=== PATIENT | female | born 2000 | race Caucasian/White ===

== ENCOUNTER 2021-12-06 13:30 | Emergency (ER) | payer BC, SELFPAY ==
[2021-12-06 13:37] VITALS: BP 132/75; PULSE 101; RESP 16; TEMP 36.2; O2SAT 98; BMI 25.6
--- NOTE | 2021-12-06 14:42 | ED.GENADULT ---
HPI - General Adult General Date Seen: 12/06/21 Chief complaint: Animal Bite Stated complaint: Possible Bat Bite Time Seen by Provider: 12/06/21 13:40 Source: patient History of Present Illness HPI narrative: Patient is a 21-year-old who comes in after concerns about a possible exposure to a bat. She says 2 nights ago she had gone out to get her cat who was outside. She says that she went just past the threshold of her door. She noted that there were some bat flying around up near a light high up in the air. She picked up her cat and went inside. She was not aware of any bat coming down lower near her. She did not feel any kind of bite or sting. She went inside and sat down, at which time she noted some blood on her right great toe. When she wiped it away, there was a small abrasion there. She is aware of having stubbed her foot at some point during the evening, though she does not remember if it was her right or left. In talking with her mom, she became concerned that this might be a possible bite from a bat. However, she is very sure that she did not feel anything near her foot, and did not see anything fly near her. It was not dark, she sure that there was enough light that she would have seen something, and she was just barely outside the door. She has not had any difficulty with the wound since then, it is healing and is almost gone. Tetanus is up-to-date. Related Data Home Medications Medication Instructions Recorded Confirmed No Known Home Medications 12/06/21 12/06/21 Allergies Allergy/AdvReac Type Severity Reaction Status Date / Time No Known Drug Allergies Allergy Verified 12/06/21 13:36 [facility] Social History Smoking Status: Never smoker Do you use any of these nicotine containing products: None Second hand tobacco smoke exposure: No How often do you have a drink containing alcohol: 2-4 times a month How many standard drinks containing alcohol do you have on a typical day: 1 or 2 How often do you have six or more drinks on one occasion: Less than monthly AUDIT-C Alcohol total score: 3 Non-prescribed substance use: denies use Exam Narrative: Exam Narrative: Vital signs reviewed. In general, an alert, well-appearing young woman. Extremities: Examination of the right great toe shows a tiny abrasion, no evidence of infection. Skin: Warm dry well perfused. Const: Vital Signs, click to edit/add: Vital Signs - 24 hr 12/06/21 13:37 Temperature 97.1 F L Pulse Rate [Pulse Oximeter] 101 H Respiratory Rate 16 Blood Pressure [Ri ght Upper Arm] 132/75 Pulse Oximetry 98 Course Course Hospital Course: I elected to talk with [facility] about her care, as I suspected that she could not really have been bitten by a bat without being aware of either the bite or a bat flying down by her foot. [facility] agreed that given that bat bites are a) typically painful, B) typically too small to see and typically do not bleed, and C) that bats are clumsy, and that it would be virtually impossible to have a bat come down by your foot and by you without being aware of the animal being near you, that she did not need shots for rabies. I discussed all this with her. She is comfortable with that decision. Routine wound care. Return for signs of infection. Vital Signs Vital signs: Initial Vital Signs Temperature 97.1 F L 12/06/21 13:37 Temperature Source Temporal Artery Scan 12/06/21 13:37 Pulse Rate 101 H 12/06/21 13:37 Respiratory Rate 16 12/06/21 13:37 Blood Pressure 132/75 12/06/21 13:37 Blood Pressure Mean 94 12/06/21 13:37 Pulse Oximetry 98 12/06/21 13:37 Oxygen Delivery Method 12/06/21 13:37 Vital Signs Temperature 97.1 F L 12/06/21 13:37 Pulse Rate 101 H 12/06/21 13:37 Respiratory Rate 16 12/06/21 13:37 Blood Pressure 132/75 12/06/21 13:37 Pulse Oximetry 98 12/06/21 13:37 Temperature 97.1 F L 12/06/21 13:37 Pulse Rate 101 H 12/06/21 13:37 Respiratory Rate 16 12/06/21 13:37 Blood Pressure 132/75 12/06/21 13:37 Pulse Oximetry 98 12/06/21 13:37 Discharge Plan Discharge Clinical Impression: Abrasion of toe Patient Disposition: Home, Self-Care Condition: Stable Instructions: Abrasion (ED) Prescriptions: No Action No Known Home Medications 0RF Follow Up/Referrals: Hernan Mendez MD [Primary Care Provider] - Stand Alone Forms: [employer] Info Instructions
== END 2021-12-06 14:45 | disposition home or self-care (01) ==
PROVIDERS: Emergency Provider Emergency Medicine; PCP Family Medicine
DX: S90.411A Abrasion, right great toe, initial encounter (principal); Z20.3 Contact with and (suspected) exposure to rabies
CPT/HCPCS: 99282; 99283

== ENCOUNTER 2024-11-24 11:25 | Emergency (ER) | payer BC, SELFPAY ==
[2024-11-24] VITALS (8 sets, daily range): BP systolic 129–133; BP diastolic 75–81; PULSE 67–75; RESP 10–22; TEMP 36.8; O2SAT 97–99; BMI 26.6
--- NOTE | 2024-11-24 11:51 | ED.SYNCOPE ---
HPI - Syncope General Time Seen by Provider: 11:51 Date Seen: 11/24/24 Chief Complaint: Syncope/Fainted Stated Complaint: fainted at work- wants to get checked Time Seen by Provider: 11/24/24 11:27 Source: patient History of Present Illness HPI narrative: This 24yo female is ambulatory into the ED with episode of presumed syncope at work. She was sitting on a bench planning on getting up to leave. She came to on the floor, not sure if she went completely to the floor but knows she hit her knee as there is some soreness. It doesn't hurt to walk but there is superficial discomfort like she feels she will get a bruise in this left knee. She has no headache, no head or neck pain. No shortness of breath before or after, no sense of chest pain or arrthymia at any time. She has not been sick or ill. No history of prior syncopal episodes. Is not on contraceptives and denies any chance for . She did just fly back from [place] Friday evening. No history of blood clots herself and not aware of any family history of this. No history of seizures or family history of seizures. Outside of the left knee, there is no pain. She thinks though that when she stood up to come here after sitting for a bit, she had just a little right calf discomfort, was limited and not painful now. Doesn't remember going down or feeling presyncopal. Did look at time right before this happened and did check clock when she came to (noted that she was already on her knees, not sure if she was starting to get up and couldn't really remember). She has migraines but none recently. No chronic medications. She was at work. Did not eat this am but this is normal for her, she doesn't eat breakfast usually. complaint: loss of consciousness Duration of episode: 7 -: minutes(s) Witnessed: No Related Data Home Medications ?Medication ?Instructions ?Recorded ?Confirmed No Known Home Medications 05/10/23 11/24/24 Allergies Allergy/AdvReac Type Severity Reaction Status Date / Time No Known Drug Allergies Allergy Verified 11/24/24 11:44 Review of Systems Status of ROS: Reports: 6 or more systems reviewed and unremarkable except as noted in History and below PFSH PFS Social History Smoking Status: Never smoker Do you use any of these nicotine containing products: None Second hand tobacco smoke exposure: No How often do you have a drink containing alcohol: 2-4 times a month How many standard drinks containing alcohol do you have on a typical day: 1 or 2 How often do you have six or more drinks on one occasion: Less than monthly AUDIT-C Alcohol total score: 3 Non-prescribed substance use: denies use Exam Const: Vital Signs, click to edit/add: Vital Signs - 24 hr 11/24/24 11:45 11/24/24 12:29 11/24/24 12:30 Temperature 98.3 F Pulse Rate 69 75 Pulse Rate [Pulse Oximeter] 67 Respiratory Rate 16 19 10 L Blood Pressure [Ri ght Upper Arm] 133/81 Pulse Oximetry 97 98 98 Oxygen Delivery Me thod Room Air 11/24/24 12:45 11/24/24 13:00 Temperature Pulse Rate 70 75 Pulse Rate [Pulse Oximeter] Respiratory Rate 21 17 Blood Pressure [Ri ght Upper Arm] Pulse Oximetry 97 99 Oxygen Delivery Me thod This 24-year-old female is alert, interactive, no apparent distress. Pupils equal round reactive, sclerae clear, extraocular movements intact, symmetrical facial function. She has no tenderness when I palpate her scalp, no noted tender areas. Neck is supple, no tenderness, no pain with range of motion. No cervical adenopathy, no thyromegaly masses or nodules. Lungs are clear, good air entry, no wheeze or crackles. CV regular rate and rhythm, no murmur, normal S1-S2. Abdomen is soft, nontender, nondistended, no organomegaly, no rebound or guarding. She has no calf tenderness, no lower extremity edema. Strength is 5/5 and symmetric, no gross neurologic deficits. Skin without rash. Patient was ambulatory into the ED without any concern for gait. Her left knee has no joint effusion, no joint line tenderness, patella is riding intact, it is not tender on palpation. Just lateral and along the inferior patella there is about a maybe quarter size area that looks like she will develop a bruise there. She has full flexion extension of her knee without pain. She states it is not painful to ambulate. Documenting provider has reviewed patient's vital signs: yes Course Course ED Course: This patient is reporting a syncopal episode. Did discuss with her in her age category certainly vasovagal syncope is still a possibility. There can be neurogenic in cardiogenic causes. It is highly unlikely that it ischemic disease within the brain/stroke is a causative etiology with a completely normal neurologic exam at this point. Seizure is a possibility, does not seem like she had a postictal phase though. She does not recollect many symptoms before the event that would definitely solidify diagnosis of vasovagal syncope. Will have her on cardiac monitoring, pulse oximetry looking for hypoxia or arrhythmia. Will obtain EKG. I do think we will do a head CT given that she does not have much recollection of any events leading up to this. Will get full complement of labs including D-dimer and troponin. She understands if the D-dimer is elevated that we will need to consider thromboembolic disease further which in her situation I think would include chest CT PE protocol and possibly venous ultrasound. Reevaluation(s) Time of Reevaluation #1: 13:20 Reevaluation #1: Did review with patient that her labs and head CT are not showing any acute pathology that would be suggestive of a concerning etiology for syncope. We are going to discharge her to home. She understands that if she has any further episodes, further evaluation will be warranted. She may need to consider cardiac and neurology consultation, cardiac monitoring like ZIO patch and any further sigmoid adjusted workup as based on suggestions from ongoing symptoms. Hopefully this was an episode of vasovagal syncope. There does not seem to be support of anything concerning at this time. Her lactate is normal, she had no bowel or bladder incontinence. She has had no arrhythmia on cardiac monitoring here. Will discharge to home at this time for further workup or return with concerns. Vital Signs Vital signs: Initial Vital Signs Temperature 98.3 F 11/24/24 11:45 Temperature Source Temporal Artery Scan 11/24/24 11:45 Pulse Rate 67 11/24/24 11:45 Respiratory Rate 16 11/24/24 11:45 Blood Pressure 133/81 11/24/24 11:45 Blood Pressure Mean 98 11/24/24 11:45 Blood Pressure Position Sitting 11/24/24 11:45 Pulse Oximetry 97 11/24/24 11:45 Oxygen Delivery Method Room Air 11/24/24 11:45 Vital Signs Temperature 98.3 F 11/24/24 11:45 Pulse Rate 67 11/24/24 11:45 Respiratory Rate 16 11/24/24 11:45 Blood Pressure 133/81 11/24/24 11:45 Pulse Oximetry 97 11/24/24 11:45 Oxygen Delivery Method Room Air 11/24/24 11:45 Temperature 98.3 F 11/24/24 11:45 Pulse Rate 75 11/24/24 13:00 Respiratory Rate 17 11/24/24 13:00 Blood Pressure 133/81 11/24/24 11:45 Pulse Oximetry 99 11/24/24 13:00 Oxygen Delivery Method Room Air 11/24/24 11:45 MDM - Syncope Lab Data Attestation: I reviewed the patient's lab results. Labs: Lab Results 11/24/24 11/24/24 Range/Units 12:15 12:26 WBC 10.57 (4.50-11.00) K/uL RBC 4.58 (4.00-5.20) m/uL Hgb 13.1 (12.0-16.0) gm/dL Hct 40.2 (33.0-51.0) % MCV 88 (80-100) fL MCH 29 (26-34) pg MCHC 33 (32-36) gm/dL RDW Coeff of Yudith 12.6 (11.5-15.5) % Plt Count 329 (140-440) K/uL Neut % (Auto) 62.3 (42.0-72.0) % Lymph % (Auto) 25.6 (20-44) % [place] % (Auto) 6.5 (0.0-11.0) % Eos % (Auto) 4.7 (0.0-7.0) % Baso % (Auto) 0.6 (0.0-3.0) % Neut # (Auto) 6.58 (1.7-7.0) K/uL Lymph # (Auto) 2.71 (0.90-2.90) K/uL [place] # (Auto) 0.70 (0.00-0.90) K/UL Eos # (Auto) 0.50 (0.00-0.50) K/uL Baso # (Auto) 0.06 (0.00-0.30) K/uL Abs Immat Gran (auto) 0.03 (0.00-0.30) K/uL Imm/Tot Granulo (auto) 0.3 % D-Dimer Quant (PE/DVT) 0.07 (0.00-0.50) ug/ml VBG pH 7.404 (7.32-7.43) VBG pCO2 44 (40-50) mmHG VBG pO2 45.8 (25-47) mmHG VBG HCO3 27 (21-28) mmol/L Sodium 136 (135-149) mmol/L Potassium 3.9 (3.6-5.1) mmol/L Chloride 103 (96-114) mmol/L Carbon Dioxide 26 (20-32) mmol/L Anion Gap 7 (7-15) mEq/L BUN 12 (5-24) mg/dL Creatinine 0.7 (0.5-1.5) mg/dL Estimated Creat Clear 119.47 Estimated GFR 123 ml/min Glucose 98 (60-115) mg/dL Lactate 0.8 (0.5-1.9) mmol/L Calcium 9.7 (8.4-10.6) mg/dL Total Bilirubin 0.5 (0.1-1.5) mg/dL AST 27 (12-35) U/L ALT 23 (4-35) U/L Alkaline Phosphatase 78 (40-150) U/L Troponin I < 0.01 (0.01-0.04) ng/mL NT-Pro-B Natriuret Pep < 20 (See Note) pg/mL Total Protein 7.8 (6.0-8.3) g/dL Albumin 4.7 (3.3-5.0) g/dL HCG, Qual Negative (Negative) Lab Acknowledgement Test Added Imaging Data CT scan - head: Attestation: I have reviewed the pertinent imaging results. Radiologist's impression: Patient: HOLA IRIZARRY Facility:?[facility] Patient ID:?[id number] Site Patient ID:?[id number]. Site :?[id number] Study:?CT-Head WITHOUT-11/24/2024 12:20:26 PM Ordering Physician:Nura Sparks Final Report: INDICATION: SYNCOPAL EPISODE. (Sic) COMPARISON: None available. TECHNIQUE: CT of the head without intravenous contrast. Please note that all CT scans at this facility use dose modulation, iterative reconstruction, and/or weight-based dosing when appropriate to reduce radiation dose to as low as reasonably achievable. FINDINGS: No acute infarct. No intracranial mass or mass effect. No intracranial hemorrhage. No hydrocephalus. Intact skull base and cranial vault. Visualized orbits are without significant incidental findings. Small right maxillary retention cyst along the posterior wall. The visualized paranasal sinuses and mastoid air cells are otherwise clear. Unremarkable soft tissues. IMPRESSION: No imaging findings pertinent to the indication for the exam or significant unrelated findings. Incidental findings described in the body of the report. Please note that all CT scans at this facility use dose modulation, iterative reconstruction, and/or weight-based dosing when appropriate to reduce radiation dose to as low as reasonably achievable. Dictated by Adria Fontanez MD @ 11/24/2024 12:38:37 PM (Electronic Signature) ECG Data Attestation: I personally reviewed and interpreted this ECG as follows: (Normal sinus rhythm, 67 beats per minute. Significant artifact. No definite ischemia. Certainly no arrhythmia. QT corrected 433 milliseconds.) ECG interpretation date: 11/24/24 ECG interpretation time: 12:07 Discharge Plan Discharge Clinical Impression: Syncope Qualifiers: Syncope type: unspecified Qualified Code(s): R55 - Syncope and collapse Patient Disposition: Home, Self-Care Condition: Stable Instructions: Syncope (ED) Additional Instructions: Recommend that you go home and rest today. Would get something to eat and stay hydrated. If you have further episodes in the future, you will need further evaluation and absolutely do recommend that you seek medical attention with further episodes. Otherwise, can resume normal activities if you feel up to it. Prescriptions: No Action No Known Home Medications Follow Up/Referrals: Hernan Mendez MD [Primary Care Provider, Family Practice] Stand Alone Forms: Work/School Release, [employer] Info Instructions Procedures ABG Interpretation ABG Results: 11/24/24 12:15 VBG pH 7.404 VBG pCO2 44 VBG pO2 45.8 VBG HCO3 27
--- NOTE | 2024-11-24 12:02 | CRLHL7_ITS ---
For Patients: As a result of the Century Cures Act, medical imaging exams and procedure reports are released immediately into your electronic medical record. You may view this report before your referring provider. If you have questions, please contact your health care provider. INDICATION: SYNCOPAL EPISODE. (Sic) COMPARISON: None available. TECHNIQUE: CT of the head without intravenous contrast. Please note that all CT scans at this facility use dose modulation, iterative reconstruction, and/or weight-based dosing when appropriate to reduce radiation dose to as low as reasonably achievable. FINDINGS: No acute infarct. No intracranial mass or mass effect. No intracranial hemorrhage. No hydrocephalus. Intact skull base and cranial vault. Visualized orbits are without significant incidental findings. Small right maxillary retention cyst along the posterior wall. The visualized paranasal sinuses and mastoid air cells are otherwise clear. Unremarkable soft tissues. IMPRESSION: No imaging findings pertinent to the indication for the exam or significant unrelated findings. Incidental findings described in the body of the report. Please note that all CT scans at this facility use dose modulation, iterative reconstruction, and/or weight-based dosing when appropriate to reduce radiation dose to as low as reasonably achievable. Dictated by Adria Fontanez MD @ 11/24/2024 12:38:37 PM (Electronically Signed)
--- OUTSIDE RECORDS SUMMARY | 2024-11-24 12:13 | XMS_ITS | Data Portability ---
Author Organization [place] - .[facility], [facility] [employer] [employer] 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 [email or web address] Not available 04/13/2023 14:11:17 Plan of Treatment Reminders Order Date Submit Date Provider Last Modified By Organization Details Last Modified Time Details Appointments None recorded. Lab influenza virus A + B + SARS-CoV-2 (COVID19) Ag panel, rapid IA, upper respiratory specimen 2022 023 [facility] [address], [facility] [place][note 2][address] [place], [address], 3 14:23:04 rapid strep group A, throat 2022 023 [facility] [address], [address] [place], [address], 3 14:23:06 culture, throat 2022 023 [facility], [address] [place], [place] [address], [place], [address], 3 08:47:32 Referral None recorded. Procedures None recorded. Surgeries None recorded. Imaging None recorded. Medication Orders None recorded. Patient TargetsNo targets recorded. Patient Instructions Encounter Date Encounter Id Patient Instructions Last Modified By Organization Details Last Modified Time 04/13/2023 [id number] A healthy lifestyle: care instructions [email or web address] Not available 04/13/2023 14:23:02 Thank you for visiting [email or web address] We may be calling you to review your lab results or schedule a follow up appointment. The call will be through an automated system which asks you to press a hemphill to speak with one of our agents. Please be on the lookout for this call and listen to the message in its entirety. You may also view your lab results using the [employer] fab, available in the Fab Store and [employer] Play. First-time fab users will need to create an account; please note you ll need to select a login and password for the fab versus just using your patient portal login. Your lab results will be posted to the [employer] fab as soon as they re available. If you have any questions regarding your visit, our Aftercare department can be reached at [phone]. Our hours are Friday from 8 am 11 pm or Friday/Friday from 9a 8p. Sore Throat Infection by bacteria or a virus causes most sore throats. Cigarette smoke, dry air, air pollution, allergies, and yelling can also cause a sore throat. Sore throats can be painful and annoying. Fortunately, most sore throats go away on their own. If you have a bacterial infection, your doctor may prescribe antibiotics. Follow-up care is a hemphill part of your treatment and safety. Be sure to make and go to all appointments, and call your doctor if you are having problems. It's also a good idea to know your test results and keep a list of the medicines you take. How can you care for yourself at home? If your doctor prescribed antibiotics, take them as directed. Do not stop taking them just because you feel better. You need to take the full course of antibiotics. Gargle with warm salt water once an hour to help reduce swelling and relieve discomfort. Use 1 teaspoon of salt mixed in 1 cup of warm water. Take an owum-erf-realorz pain medicine, such as acetaminophen (Tylenol), ibuprofen (Advil, Motrin), or naproxen (Aleve). Read and follow all instructions on the label. Be careful when taking jhqo-els-ldrlqlp cold or flu medicines and Tylenol at the same time. Many of these medicines have acetaminophen, which is Tylenol. Read the labels to make sure that you are not taking more than the recommended dose. Too much acetaminophen (Tylenol) can be harmful. Drink plenty of fluids. Fluids may help soothe an irritated throat. Hot fluids, such as tea or soup, may help decrease throat pain. Use euhw-vtx-prhjlhi throat lozenges to soothe pain. Regular cough drops or hard candy may also help. These should not be given to young children because of the risk of choking. Do not smoke or allow others to smoke around you. If you need help quitting, talk to your doctor about stop-smoking programs and medicines. These can increase your chances of quitting for good. Use a vaporizer or humidifier to add moisture to your bedroom. Follow the directions for cleaning the machine. When should you call for help? Call your doctor now or seek immediate medical care if: You have new or worse trouble swallowing. Your sore throat gets much worse on one side. Watch closely for changes in your health, and be sure to contact your doctor if you do not get better as expected. [email or web address] Not available 04/13/2023 14:12:26 Reason for Referral None Reported. Results Created Date Observation Date Name Description Value Unit Range Abnormal Flag Note LastModifiedBy Organization Detail LastModifiedTime 04/13/20 23 04/13/2023 CULTU RE THROA T results Attac hment Not Available [facility] [address] [place], [address], 04/15/2023 08:47:32 04/13/20 23 04/15/2023 CULTU RE THROA T final MICROB IOLOGY RESULT S Cultu re Throa t Final Sourc e: Repor t Date/ Time: 04/15 8:47A M Colle ction Date/ Time: 04/13 4:25P M 1630 [facility] Infor matio n Penic illin Aller gy? N Cultu re Obser vatio n Cassandra l upper Respi rator y mely isola allyssa. No Beta Hemol ytic Strep isola allyssa. Not Available [facility] [address] [facility], [place], [address], 04/15/2023 08:47:32 04/13/20 23 04/13/2023 rapid strep group A, throa t Group A Strep NEGATI VE Not Available [address], [address], 04/13/2023 14:03:45 04/13/20 23 04/13/2023 influ lennie virus A + B + SARS- CoV-2 (COVI D19) Ag panel , rapid IA, upper respi rator y speci men Flu A NEGATI VE Not Available [address], [address], 04/13/2023 13:58:17 04/13/20 23 04/13/2023 influ lennie virus A + B + SARS- CoV-2 (COVI D19) Ag panel , rapid IA, upper respi rator y speci men Flu B NEGATI VE Not Available [address], [address], 04/13/2023 13:58:17 04/13/20 23 04/13/2023 influ lennie virus A + B + SARS- CoV-2 (COVI D19) Ag panel , rapid IA, upper respi rator y speci men Covid-19 NEGATI VE Not Available [address], [address], 04/13/2023 13:58:17 Result Notes None recorded. Problems No Known Problems Medical Equipment None Reported. Allergies No known drug allergies Medications Not known to be on any medication Vitals Date Recorded Respiratory rate Body height Body mass index (BMI) Body weight Heart rate Oxygen saturation Oxygen saturation in Arterial blood by Pulse oximetry Body temperature Systolic And Diastolic Provider Name and Address Organization Details Last Updated DateTime 3 16 /min 167.64 cm 24.2 kg/m2 56083.8 6 g 103 /min 99 % 99 % 98.5 [degF] 123/80 mm[Hg] Zaria Pramod Lubin [place] - .[facility] 3 13:55:57 Social History None recorded. Functional Status None recorded. Mental Status None recorded. Family History Nothing Reported. Medical History No medical history recorded. Gynecological HistoryNo gynecological history recorded. Obstetrics History GPAL:G 0 P 0 0 0 0 Past Encounters Encounter ID Performer Location Encounter Start Date Encounter Closed Date Diagnosis/Indication Diagnosis SNOMED-CT Code Diagnosis ICD10 Code Diagnosis Note [id number] [facility] [address] [place] [address] 04/13/2023 13:34:46 04/13/2023 14:06:26 Sore throat 899020231 J02.9 Patient complains of sore throat. Patient is able to tolerate liquids. Patient has no truisms or neck stiffness. No vesicles/ Ulceration in the pharynx, Tonsillar exudate or Palatal petechiae. NO peritonsil lar swelling. Uvula is midline.No obvious dental infection. No swelling under the tongue. NO tenderness in the region of cricoid cartilage. No history of immunocomp romise. Nontoxic appearance .Patient euvolemic with no trismus. No airway compromise . Able to tolerate PO.Given History and Exam I have low suspicion for this presentati on being caused by DIRECTOR AND PROFESSOR, RPA, Ludwigs, Epiglottit is or Bacterial Tracheitis , EBV, acute HIV.no respirator y distresslu ngs clearafebr ile with normal pulse oxlow suspicion for pneumoniaC onservativ e careDischa rge home with prompt outpatient PCP follow up; return precaution s discussed. Health Concerns Section Related Observation LastModified by Organization Detai ls LastModified Time None Recorded Concern Status LastModified by Organization Details LastModified Time None Recorded Advance Directives Directive None Recorded Payers Insurance Date Sequence Insurance Name Policy Number Policy Gutierrez Covered Member ID Gutierrez Member ID Guarantor Name 12/03/2023 1 [place] Diana Michel [id number] Macey Marilu Notes Date Note Type Note Provider Name and Address Organization Details Recorded Time 04/13/2023 text/html COVID-19 VISIT - cmdReported bypatient.Patient presents forCOVID-19 VISIT Pertinent findings:No fever; NO nasal symptoms; No CP; No leg swelling; No neurologic deficits; No SOB;(+) body aches;(+) sore throat COVID-19 exposure(+) URI SYMPTOMS - possible COVID-19 infection COVID vaccination status:(+) COVID Vaccination Pfizer and HAS been > 2 weeks since the FINAL scheduled dose;Received BOOSTER PfizerSore throat - cmdReported bypatient.Patient presents with:Sore throat complaint which began a few hours ago Pertinent findings:No fever; No nasal congestion; No sinus congestion; No ear complaints; No eye complaints; No cough; No shortness of breath; No exposure to strep;(+) painful swallowing 22 y/o F p/w fever (Tmax = 103F, taken at home this morning, has since subsided), body aches, chills, sore throat, and painful swallowing that all started this morning. Pt denies cough, nasal congestion, sick contact, nausea, vomiting, or ear complaints. Pt reports taking ibuprofen about an hour ago. Pt declined PCR testing. Bhavik NYE [address] [place] [address],[address], [place], [address], [place] - .[facility] 04/13/2023 14:23:08 OBGyn Episode No OBEpisode recorded.
--- OUTSIDE RECORDS SUMMARY | 2024-11-24 12:13 | XMS_ITS | Clinical Summary ---
Author Organization [facility] Address [address] [place] [address] Care Team Providers Care School Health Aide Name Role Phone Shobha Blair MD Primary Care Provider Allergies No known active allergies Medications No known medications Active Problems Problem Noted Date Diagnosed Date Family history of celiac disease 08/19/2017 Migraine with aura Immunizations Immunization Administration Dates Next Due COVID-19 VACCINE SPIKEVAX (M ODERNA 50MCG/0.5ML) 12YO+ PFS 03/03/2024 COVID-19 vaccine (Moderna 50 mcg/0.5mL) 12YO+ BIVALENT PF, MDV 04/08/2022 COVID-19 vaccine (Pfizer-Bio NTech 30mcg/0.3mL) PF, MDV 10/10/2020,08/28/2020 DTaP 12/19/2004, 1,02/25/2000,12/25,1999 DTaP-HIB (TriHIBIT) 11/26/2000 PGpX-MgiZ-IHO (Pediarix) 02/25/2000,1999,0 1999 DTaP-IPV (Kinrix) 12/19/2004 Dtap Unspecified Formulation 01/02/2012 HIB PRP-T (ActHIB,Hiberix) 06/26/2000,1999 ,1999 HIB-HepB (Comvax) 1999,1999 Hepatitis A (Peds) 08/04/2014, 4,01/02/2012,01/11 Hepatitis A, Unspecified 11/18/2013,01/02/2012,0 01/11/2010 Hepatitis B (Adult) 06/26/2000 Human Papilloma Virus Vaccine 08/04/2014, 014,01/02/2012 INFLUENZA, IIV3 PF (AGE >= 6 MO) 03/03/2024 Inactivated Polio Vaccine 12/19/2004,,1999,10/24 Influenza A (H1N1), Inactivated 06/22/2009,04/25 Influenza Virus, Unspecified 02/27/2009,08/25/19 00 Influenza, IIV4 04/08/2022 Influenza, IIV4 (=>6mos) MDV 05/15/2019 Influenza, Injectable, Mdck, Quadrivalent, W/preservative 1999 Influenza, Whole Virus 05/09/2003 Influenza,LAIV3 Live Intrana jane (Flumist) 02/14/2010 Influenza,LAIV4 Live Intrana jane (Flumist) 02/14/2010,02/27/2009 MENINGOCOCCAL VACCINE 2 VIAL 2MO-55YO (MENVEO) 08/19/2017 MMR 12/19/2004,11/26/2000 MMR, Unspecified 12/19/2004,11/26/2000 Meningococcal Vaccine (Menactra) 01/02/2012 Pneumococcal conj 7-Valent (Prevnar 7) 0 11/26/2000,11/26/2000,02/25/2000,12/25,1999 Tdap 12/30/2019,01/02/2012 Tdap, Unspecified 01/02/2012 Varicella Vaccine 01/11/2010,11/26/2000 Family History Medical History Relation Name Comments Good Health Father Celiac disease Maternal Grandmother Celiac disease Mother Hypothyroidism Mother Cancer-prostate Paternal Grandfather Heart Disease Paternal Grandfather Other Paternal Grandfather choroid emia, he is blind Cancer Paternal Grandmother thyroid , in her 30s Celiac disease Sister Relation Name Status Comments Father Maternal Grandmother Mother Paternal Grandfather Paternal Grandmother Sister Social History Tobacco Use Types Packs/Day Years Used Date Smoking Tobacco: Never Smokeless Tobacco: Never Tobacco Cessation:Counseling Given: Yes Alcohol Use Standard Drinks/Week Comments Yes 0 (1 standard drink = 0.6 oz pur e alcohol) occ PHQ-2 Answer Date Recorded PHQ-2 TOTAL SCORE 0 03/03/2024 Social Connections Answer Date Recorded Do you often feel lonely or isolated from those around you? 0 03/03/2024 Financial Resource Strain Answer Date R ecorded Difficulty of Paying Living Expenses 3 03/03/2024 Difficulty of Paying Living Expenses Not on file 03/03/2024 Food Insecurity Answer Date Recorded Do you worry your food will run out before you are able to buy more? 1 03/03/2024 Transportation Needs Answer Date Record ed Does lack of transportation keep you from medica l appointments? 1 03/03/2024 Does lack of transportation keep you from work, meetings or getting things that you need? 1 03/03/2024 Housing Stability Answer Date Recorded What is your housing situation today? 1 03/03/2024 Utilities Answer Date Recorded Do you have trouble paying f or utilities (for example, heat, electricity, water, phone)? 1 03/03/2024 Comments No Sex and Gender Information Value Date Recorded Sex Assigned at Not on file Legal Sex Female 9:25 PM CDT Gender Identity Not on file Sexual Orientation Not on file Obstetrics History Last Filed Vital Signs Vital Sign Reading Time Taken Comments Blood Pressure 119/77 03/03/2024 3:43 PM CDT Pulse 80 03/03/2024 3:43 PM CDT Temperature 37.1 C (98.7 F) 11/13/2022 1:29 PM CDT Respiratory Rate 18 11/13/2022 1:29 PM CDT Oxygen Saturation 97% 03/03/2024 3:43 PM CDT Inhaled Oxygen Concentration - - Weight 76.5 kg (168 lb 9.6 oz) 03/03/2024 3:43 P M CDT Height 166.3 cm (5' 5.47) 03/03/2024 3:43 PM CD T Body Mass Index 27.65 03/03/2024 3:43 PM CDT Plan of Treatment Health Maintenance Due Date Last Done Comments HIV for age 15-65 08/24/2014 Hepatitis C screening for age 18-79 08/24/2017 Pap test for age 21-65 08/24/2020 Influenza Vaccine (#1) 2025 , 04/08/2022, 05/15/2019, Additional history exists BMI (ht and wt on same day) for age 18+ 03/03/2025 03/03/2024, 11/04/2022, 10/23/2018 Depression screening for age 12+ 03/03/2025 03/03/2024, 11/04/2022, 10/23/2018, Additional history exists Tetanus booster 12/29/2029 12/30/2019, 12/11, 01/02/2012 Hepatitis B series for 19+ Completed 06/26, 02/25/2000, 1999, Additional history exists Pneumococcal series for age 6-49 Aged Out 11/26/2000, 11/26/2000, 02/25/2000, Additional history exists No longer eligible based on patient's age to complete this topic HPV series for age 9-26 Completed 08/05/19 15, 11/18/2013, 01/02/2012 COVID-19 vaccine series Completed 03/03/20 24, 04/08/2022, 05/10/2021, Additional history exists Insurance [employer] Care Teams School Health Aide Relationship Specialty Start Date End Date Shobha Blair MD [address] [place] [address] PCP - General Family Practice 11/04/22
[2024-11-24 12:22] LABS: HCO3 VBG 27 mmol/L (21-28); Lactate* 0.8 mmol/L (0.5-1.9); PCO2 VBG 44 mmHG (40-50); PO2 VBG 45.8 mmHG (25-47); pH VBG 7.404 (7.32-7.43)
[2024-11-24 12:23] LABS: Hematocrit* 40.2 % (33.0-51.0); Hemoglobin* 13.1 gm/dL (12.0-16.0); Immature Granulocytes Abs Auto 0.03 K/uL (0.00-0.30); Immature Granulocytes Pct Auto 0.3 %; Lymphocytes Absolute Auto 2.71 K/uL (0.90-2.90); Mean Corpuscular HGB Conc 33 gm/dL (32-36); Mean Corpuscular Hemoglobin 29 pg (26-34); Mean Corpuscular Volume 88 fL (80-100); RDW Coefficient of Variation % 12.6 % (11.5-15.5); Red Blood Count* 4.58 m/uL (4.00-5.20); White Blood Count* 10.57 K/uL (4.50-11.00)
[2024-11-24 12:24] LABS: Slide Review Reflex No
[2024-11-24 12:37] LABS: Chloride* 103 mmol/L (96-114)
[2024-11-24 12:38] LABS: Albumin* 4.7 g/dL (3.3-5.0); Potassium* 3.9 mmol/L (3.6-5.1); Sodium* 136 mmol/L (135-149)
[2024-11-24 12:40] LABS: Alanine Aminotransferase* 23 U/L (4-35); Anion Gap 7 mEq/L (7-15); Aspartate Amino Transferase* 27 U/L (12-35); Blood Urea Nitrogen* 12 mg/dL (5-24); Carbon Dioxide* 26 mmol/L (20-32); Creatinine* 0.7 mg/dL (0.5-1.5); Est. Creatinine Clearance* 119.47; Estimated Glomerular Filt Rate 123 ml/min
[2024-11-24 12:41] LABS: Alkaline Phosphatase* 78 U/L (40-150); Bilirubin Total* 0.5 mg/dL (0.1-1.5); Calcium* 9.7 mg/dL (8.4-10.6); Glucose* 98 mg/dL (60-115); Total Protein* 7.8 g/dL (6.0-8.3)
[2024-11-24 12:50] LABS: D Dimer Quantitative* 0.07 ug/ml (0.00-0.50)
[2024-11-24 13:02] LABS: NT Pro B Type NatriureticPept* < 20 pg/mL (See Note)
[2024-11-24 13:04] LABS: HCG Qualitative Serum* Negative (Negative)
== END 2024-11-24 13:41 | disposition home or self-care (01) ==
PROVIDERS: Emergency Provider Family Medicine; PCP Family Medicine
DX: R55 Syncope and collapse (principal)
CPT/HCPCS: 36415; 70450; 80053; 82803; 83605; 83880; 84484; 84703; 85025; 85379; 93005; 94761; 99284; 99285

== ENCOUNTER 2025-03-03 13:00 | Outpatient (RCR) | payer BC, SELFPAY | END 2025-03-04 07:24 | disposition home or self-care (01) | PROVIDERS: PCP Family Medicine; Visit Provider Family Medicine | DX: S39.012D Strain of muscle, fascia and tendon of lower back, subsequent encounter (principal); Z51.89 Encounter for other specified aftercare | CPT/HCPCS: 97110; 97140; 97161 ==